=== PATIENT | male | born 1950 ===

== ENCOUNTER 2018-05-10 08:12 | Inpatient (IN) | payer MEDICARE, OTHER ==
[2018-05-10] VITALS (17 sets, daily range): BP systolic 130–176; BP diastolic 70–96
[~2018-05-10] VITALS: Ht 167.6 cm; Wt 72.6 kg
[~2018-05-10 08:12] MED LIST: ceFAZolin sod 1 GM in NS 55 ML IVPB ONE
--- NOTE | 2018-05-10 09:23 | Anethesia Preoperative Eval ---
Anesthesia Pre-op PMH/ROS General Date of Evaluation: May 10, 2018 Anesthesiologist: John ASA Score: ASA 3 Mallampati Score Class I : Soft palate, uvula, fauces, pillars visible Class II: Soft palate, uvula, fauces visible Class III: Soft palate, base of uvula visible Class IV: Only hard plate visible Mallampati Classification: Class II Surgeon: Joy Diagnosis: BPH Surgical Procedure: TURP Anesthesia History: none Family History: no anesthesia problems Allergies: Coded Allergies: No Known Allergies (Unverified , 05/09/18) Medications: see eMAR Patient NPO?: Yes NPO Date: May 09, 2018 NPO Time: 16:00 Past Medical History Cardiovascular: Reports: HTN, CAD - s/p VT in 2001 and stent placement, VT - in 2001, arrhythmia - AICD-2013; h/o cardiac arrest in OR during parathyroidectomy on 03/2017. Records reviewed thoroughly, other - HLD; Denies: valve dz Pulmonary: Denies: asthma, COPD, RICHY, other Gastrointestinal/Genitourinary: Reports: other - BPH; Denies: GERD, CRI, ESRD Neurologic/Psychiatric: Denies: dementia, CVA, depression/anxiety, TIA, other Endocrine: Denies: DM, hypothyroidism, steroids, other HEENT: Denies: cataract (L), cataract (R), glaucoma, [place] (L), [place] (R), other Hematology/Immune: Denies: anemia, DVT, bleeding disorder, other Musculoskeletal/Integumentary: Denies: OA, RA, DJD, DDD, edema, other PSxH Narrative: parathyroidectomy Anesthesia Pre-op Phys. Exam Physician Exam Last Vital Signs Date Time Temp Pulse Resp B/P (MAP) Pulse Ox O2 Delivery O2 Flow Rate FiO2 05/10/18 09:01 Room Air Constitutional: NAD Cardiovascular: RRR Respiratory: CTA Airway Exam Mallampati Score: Class II MO: full ROM: full Teeth: missing Anesthesia Pre-op A/P Labs see chart Studies Pre-op Studies: EKG - sr, LBBB, CXR - no acute pulmonary process, echo - EF 50% , PAP 30 Risk Assessment & Plan Assessment: Patient is a 67 y/o male, ASA III, with h/o CAD s/p VT, HTN, HLD, BPH and AICD placement secondary to LBBB. Patient has a history of intra-op cardiac arrest during a parathyroidectomy performed on 03/2017. I personally have reviewed the Records thoroughly. Per records, patient's BP dropped precipitously s/p induction of anesthesia and AICD fired multiple times. Patient then went into asystole and a subsequent code was run. Currently patient is asymptomatic. Denies CP, SOB, dyspnea on exertion. Last stress test was negative for reversible ischemia and he states that he had his AICD interrogated on 04/27/17 and that it's functioning properly. In light of this, I've discussed the options of both SAB and GA with patient and we've reviewed the pros and cons of each. The decision to proceed with GA and a slow controlled induction was made. Will monitor the patient closely and have pressors ready on standby. Plan: GA, with slow controlled induction Status Change Before Surgery: No Pre-Antibiotics Drug: Ancef 2g Given Within 1 Hr of Incision: Yes Karina Mathis MD May 10, 2018 09:23
[2018-05-10] MEDS ORDERED: ALLOPURINOL300 M1 ORAL (09:45)
[2018-05-10] MEDS ORDERED: ATORVASTATIN CA40 MG ORAL (09:45)
[2018-05-10] MEDS ORDERED: VITAMIN D400 INTLU ORAL (09:45)
[2018-05-10] MEDS ORDERED: IRBESARTAN-HCT1 EAC1 ORAL (09:45)
[2018-05-10] MEDS ORDERED: ISORDIL30 MG PO (09:45)
[2018-05-10] MEDS ORDERED: ASPIR 8181 MG ORAL (09:45)
[2018-05-10] MEDS ORDERED: CARVEDILOL12.5 MG ORAL (09:45)
[2018-05-10] MEDS ORDERED: TAMSULOSIN HCL0.4 MG ORAL (09:45)
[2018-05-10] MEDS ORDERED: Dexamethasone 4mg/ml vial ONE (10:00)
[2018-05-10] MEDS ORDERED: LR 1000ml ONE (10:00)
[2018-05-10] MEDS ORDERED: NS Irrig 1000ml ONE (10:00)
[2018-05-10] MEDS ORDERED: NS Irrig 4000ml IRRIG ONE ×2 (10:00→10:40)
--- NOTE | 2018-05-10 10:04 | Pre-Procedure Note/Attestation ---
Pre-Procedure Note/Attestation Complete Prior to Procedure Planned Procedure: not applicable Procedure Narrative: turp Indications for Procedure Pre-Operative Diagnosis: bph Attestation I attest that I discussed the nature of the procedure; its benefits; risks and complications; and alternatives (and the risks and benefits of such alternatives ), prior to the procedure, with the patient (or the patient's legal contact representative). I attest that, if there was a reasonable possibility of needing a blood transfusion, the patient (or the patient's legal contact representative) was given the [facility] standardized written summary, pursuant to the [place] Blood Safety Act ([place] Health and Safety Code # 1645, as amended). I attest that I re-evaluated the patient just prior to the surgery and that there has been no change in the patient's H&P, except as documented below: Neal Hamilton MD May 10, 2018 10:04
[2018-05-10] MEDS ORDERED: Lidocaine 1% MPF 10mg/ml 5ml ONE (10:18)
[2018-05-10] MEDS ORDERED: Midazolam 2mg/2ml Inj ONE (10:18)
[2018-05-10] MEDS ORDERED: Propofol 200mg/20ml IV ONE (10:18)
[2018-05-10] MEDS ORDERED: fentaNYL 100 mcg/2 mL IV ONE (10:18)
[2018-05-10] MEDS ORDERED: LR 1000ml 1,000 ML IVLG SCH (11:17)
[2018-05-10] MEDS ORDERED: LORazepam Inj 2mg/ml 1ml IV PRN (11:30)
[2018-05-10] MEDS ORDERED: Metoclopramide 10mg/2ml Inj IVP PRN (11:30)
[2018-05-10] MEDS ORDERED: fentaNYL 100 mcg/2 mL IV PRN (11:30)
[2018-05-10] MEDS ORDERED: DiphenhydrAMINE 50mg/ml Inj IVP PRN (11:30)
[2018-05-10] MEDS ORDERED: Midazolam 2mg/2ml Inj IVP PRN (11:30)
[2018-05-10] MEDS ORDERED: Hydromorphone 0.5mg/0.5ml inj IVP PRN (11:30)
[2018-05-10] MEDS ORDERED: Ketorolac 30mg Inj IV PRN (11:30)
[2018-05-10] MEDS ORDERED: Ketorolac 30mg Inj ONE (11:42)
[2018-05-10] MEDS ORDERED: Phenylephrine 10mg/ml Vial ONE (11:42)
[2018-05-10] MEDS ORDERED: ePHEDrine 50mg/ml Inj ONE (11:42)
--- NOTE | 2018-05-10 11:51 | Brief Operative Note ---
Immediate Post Operative Note Operative Note Pre-op Diagnosis: bph Procedure: TURP Post-op Diagnosis: same Post-op Diagnosis: same as pre-op Surgeon: Rashel Hamilton Anesthesia: general Specimen: yes Complications: none Condition: stable Fluids: 1000 Estimated Blood Loss: minimal Implant(s) used?: No Neal Hamilton MD May 10, 2018 11:51
--- NOTE | 2018-05-10 12:08 | Immediate Post-Op Evaluation ---
Immediate Post-Op Evalulation Immediate Post-Op Evalulation Procedure: TURP Date of Evaluation: May 10, 2018 Time of Evaluation: 12:08 IV Fluids: 1.3L Blood Products: 0 Estimated Blood Loss: 100 Urinary Output: 0 Blood Pressure Systolic: 130 Blood Pressure Diastolic: 77 Pulse Rate: 66 Respiratory Rate: 16 O2 Sat by Pulse Oximetry: 94 Temperature (Fahrenheit): 97.7 Pain Score (1-10): 0 Nausea: No Vomiting: No Complications 0 Patient Status: awake, reacts, patent, none Hydration Status: adequate Drug: Ancef 1g Given Within 1 Hr of Incision: Yes Time Given: 10:30 Karina Mathis MD May 10, 2018 12:08
[2018-05-10 13:07] LABS: BASOPHILS % (AUTO) 0.4 % (0.0-2.0); EOSINOPHILS % (AUTO) 1.2 % (0.0-3.0); HEMATOCRIT 43.2 % (42.0-52.0); HEMOGLOBIN 14.7 G/DL (14.2-18.0); LYMPHOCYTES % (AUTO) 17.1 % (20.0-45.0); MEAN CORPUSCULAR VOLUME 90 FL (80-99); MONOCYTES % (AUTO) 2.8 % (1.0-10.0); NEUTROPHILS % (AUTO) 78.5 % (45.0-75.0); PLATELET COUNT 206 K/UL (150-450); RED BLOOD COUNT 4.78 M/UL (4.70-6.10); RED CELL DISTRIBUTION WIDTH 11.6 % (11.6-14.8); WHITE BLOOD COUNT 6.3 K/UL (4.8-10.8)
[2018-05-10 13:33] LABS: ANION GAP 5 mmol/L (5-15); BLOOD UREA NITROGEN 22 mg/dL (7-18); CALCIUM 9.2 MG/DL (8.5-10.1); CARBON DIOXIDE 30 MMOL/L (21-32); CHLORIDE 104 MMOL/L (98-107); CREATININE 1.4 MG/DL (0.55-1.30); POTASSIUM 4.5 MMOL/L (3.5-5.1); SODIUM 139 MMOL/L (136-145)
[2018-05-10] MEDS ORDERED: Norco 5mg/325mg tab ORAL PRN (13:51)
[2018-05-10] MEDS ORDERED: HYDROmorphone 1mg/ml Carpuject IVP PRN ×2 (13:51→14:00)
[2018-05-10] MEDS: D5 1/2NS w/KCl 20mEq 1,000 ML IV SCH (14:23)
[2018-05-10] MEDS: ceFAZolin 2gm/50ml Premix 50 ML IV SCH (17:31)
[2018-05-10] MEDS: Docusate 100mg cap ORAL SCH (17:38)
[2018-05-11] VITALS: BP 127/66
[2018-05-11] MEDS: D5 1/2NS w/KCl 20mEq 1,000 ML IV SCH ×2 (00:09→10:30)
[2018-05-11] MEDS: ceFAZolin 2gm/50ml Premix 50 ML IV SCH (01:58)
[2018-05-11 04:00] VITALS: BP 137/71
[2018-05-11 07:17] LABS: BASOPHILS % (AUTO) 0.3 % (0.0-2.0); EOSINOPHILS % (AUTO) 0.1 % (0.0-3.0); HEMATOCRIT 37.3 % (42.0-52.0); HEMOGLOBIN 12.6 G/DL (14.2-18.0); LYMPHOCYTES % (AUTO) 10.5 % (20.0-45.0); MEAN CORPUSCULAR VOLUME 91 FL (80-99); MONOCYTES % (AUTO) 6.8 % (1.0-10.0); NEUTROPHILS % (AUTO) 82.4 % (45.0-75.0); PLATELET COUNT 213 K/UL (150-450); RED CELL DISTRIBUTION WIDTH 11.9 % (11.6-14.8); WHITE BLOOD COUNT 16.5 K/UL (4.8-10.8)
--- NOTE | 2018-05-11 07:27 | 48 Hour Post Anesthesia Eval ---
Post Anesthesia Evaluation Procedure: TURP Date of Evaluation: May 11, 2018 Time of Evaluation: 06:00 Blood Pressure Systolic: 137 0: 71 Pulse Rate: 60 Respiratory Rate: 18 Temperature (Fahrenheit): 98.3 O2 Sat by Pulse Oximetry: 95 Airway: patent Nausea: No Vomiting: No Pain Intensity: 0 Hydration Status: adequate Cardiopulmonary Status: at baseline Mental Status/LOC: patient returned to baseline Post-Anesthesia Complications: 0 Follow-up care needed: N/A - further care as per primary team Karina Mathis MD May 11, 2018 07:27
[2018-05-11 07:33] LABS: ANION GAP 8 mmol/L (5-15); BLOOD UREA NITROGEN 28 mg/dL (7-18); CALCIUM 8.7 MG/DL (8.5-10.1); CARBON DIOXIDE 28 MMOL/L (21-32); CHLORIDE 105 MMOL/L (98-107); CREATININE 1.6 MG/DL (0.55-1.30); POTASSIUM 4.3 MMOL/L (3.5-5.1); SODIUM 141 MMOL/L (136-145)
[2018-05-11 08:00] VITALS: BP 137/65
[2018-05-11] MEDS: Docusate 100mg cap ORAL SCH (08:33)
[2018-05-11] MEDS ORDERED: hydroCHLOROthiazide 12.5mg TAB ORAL SCH (09:00)
[2018-05-11] MEDS ORDERED: Vitamin D 400 INTLU TAB ORAL SCH (09:00)
[2018-05-11] MEDS ORDERED: Carvedilol 12.5mg tab ORAL SCH (09:00)
[2018-05-11] MEDS ORDERED: Irbesartan 150mg tablet ORAL SCH (09:00)
[2018-05-11] MEDS ORDERED: NS Irrig 1000ml ONE (10:00)
[2018-05-11] MEDS ORDERED: LR 1000ml ONE (10:00)
[2018-05-11] MEDS ORDERED: NS Irrig 4000ml IRRIG ONE (10:00)
[2018-05-11] MEDS ORDERED: Dexamethasone 4mg/ml vial ONE (10:00)
[2018-05-11 12:00] VITALS: BP 117/62
--- NOTE | 2018-05-11 16:15 | History and Physical Report ---
DATE OF ADMISSION: 05/10/2018 DATE OF SERVICE: 05/11/2018 HISTORY OF PRESENT ILLNESS: This is a very pleasant 67-year-old male who has undergone TURP yesterday. He is doing well. Postoperative day #1. He has a Shin catheter in place and bladder irrigation is in progress. The patient denies any new problems. PAST MEDICAL HISTORY: Notable for hypertension, hyperlipidemia, AICD, BPH, gout, and chronic insomnia. HOME MEDICATIONS: Include Flomax, Ambien, Zyloprim, Lipitor, aspirin, Imdur, colchicine, Coreg, tramadol, MiraLAX, Proscar, Zetia, and Avalide. ALLERGIES: None. PREVIOUS SURGERIES: The patient reports a previous history of parathyroidectomy. REVIEW OF SYSTEMS: Denies any headaches, hematemesis, melena, or hematochezia. PHYSICAL EXAMINATION: GENERAL: Reveals a 67-year-old male. HEENT: Unremarkable. LUNGS: Clear breath sounds bilaterally. ABDOMEN: Soft. NEUROLOGIC: Nonfocal. GENITOURINARY: Shin catheter is in place. IMPRESSION: 1. Postop day #1 status post TURP. 2. Hypertension. 3. Hyperlipidemia. 4. AICD. 5. BPH. 6. Gout. DISCUSSION: Continue home medications. We will hold off on aspirin given bladder irrigation. We will resume other home medications. 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 Discussed with Dr. Hamilton. Check labs in a.m. Faustino Will M.D. DR: WILFREDO JOB#: [id number] CC:
--- NOTE | 2018-05-11 16:15 | Operative Note - Dictated ---
DATE OF OPERATION: 05/10/2018 PREOPERATIVE DIAGNOSIS: BPH, urinary retention. POSTOPERATIVE DIAGNOSIS: BPH, urinary retention. OPERATIONS: Cystoscopy with resection of the prostate. OPERATED BY: Neal Hamilton M.D. ANESTHESIA: General. FINDINGS: Enlarged prostate. INDICATIONS FOR SURGERY: The patient suffered from BPH despite medical treatments. Urinalysis showed significant obstruction. Treatment options were explained to him in great length including all potential complications. He signed a consent. DESCRIPTION OF PROCEDURE: He was brought to the operating room, placed in lithotomy position, prepped and draped in standard fashion. Under general anesthesia, cystoscope was introduced and resectoscope . Standard resection of the prostate including the lateral was performed all the way to the verumontanum. All the chips were evacuated with the Countercepts evacuator. Hemostasis was accomplished with . Bladder was intact. Ureters were intact. A 24 three-way Shin was placed and CBI started. Sponge count and instrument count was correct. The patient tolerated the procedure well. Estimated blood loss was approximately mL. Neal Hamilton M.D. DR: RAH JOB#: [id number] CC:
[2018-05-11] MEDS ORDERED: Tamsulosin 0.4mg cap ORAL SCH (21:00)
[2018-05-11] MEDS ORDERED: Atorvastatin 80mg tab ORAL SCH (21:00)
--- NOTE | 2018-05-12 12:33 | Discharge Summary ---
Discharge Summary Discharge Summary _ DATE OF ADMISSION: 05/10/2018 DATE OF DISCHARGE: 05/11/2018 SURGEON: Dr. Neal Hamilton CONSULTANTS: Dr. Carmina Will BRIEF HOSPITAL COURSE: Patient is a 67-year-old male, with history of BPH and has suffered from BPH despite medical treatments. Urinalysis showed significant obstruction. He was admitted and underwent cystoscopy with resection of the prostate. He tolerated procedure well. Postprocedure, he was admitted for postop care. He was continued on CBI. Home medications were resumed. Diet was advanced. Vital signs were stable. Hemoglobin levels were stable. Bladder irrigation was discontinued. Shin was attached to a leg bag. Patient was eventually cleared for discharge home. FINAL DIAGNOSES: BPH status post cystoscopy with resection of the prostate Hypertension Hyperlipidemia AICD Gout DISPOSITION: Patient was discharged home. DISCHARGE MEDICATIONS: Refer to Discharge Medication List. DISCHARGE INSTRUCTIONS: Follow-up in a week. I have been assigned to complete a discharge summary on this account, I was not involved with the patient's management. Amy Amado NP May 12, 2018 12:33
== END 2018-05-11 15:00 | disposition home or self-care (01) | DRG 714 ==
LOC: SDSOVERFLO 08:12 → 3E 13:46
PROC: 0VT08ZZ Resection of Prostate, Via Natural or Artificial Opening Endoscopic (ICD-10-PCS; principal; 2018-05-10 09:30)
DX: N40.0 Benign prostatic hyperplasia without lower urinary tract symptoms (principal); I10 Essential (primary) hypertension; E78.5 Hyperlipidemia, unspecified; Z95.810 Presence of automatic (implantable) cardiac defibrillator; M10.9 Gout, unspecified; G47.00 Insomnia, unspecified; I25.10 Atherosclerotic heart disease of native coronary artery without angina pectoris; Z95.5 Presence of coronary angioplasty implant and graft; I25.2 Old myocardial infarction
CPT/HCPCS: 36415; 80048; 85025; 86850; 86900; 86901; 87081; 94003; 94150; J2250; J2370; J2405